=== PATIENT | male | born 2000 | race African-American/Black ===

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

== ENCOUNTER 2020-04-19 17:35 | Inpatient (IN) | payer OTHER ==
[2020-04-19 20:14] LABS: BASO % 0.2 % (0-2.0); EOS % 3.2 % (0-4.5); HEMATOCRIT 37.4 % (35.4-49); HEMOGLOBIN 12.5 GM/dL (11.7-16.9); MCH 31.7 pg (25.7-33.7); MCHC 33.4 g/dl (32.0-35.9); MEAN CELL VOLUME 94.7 fl (80-96); MONO % 9.4 % (3.8-10.2); NEUT % 72.2 % (42.8-82.8); PLATELET COUNT 372 K/MM3 (134-434); RBC 3.95 M/mm3 (4.00-5.60); RDW 13.1 % (11.9-15.9); WHITE BLOOD COUNT 10.8 K/mm3 (4.0-10.0)
[2020-04-19] MEDS ORDERED: SODIUM CHLORIDE 1,000 ML IV STA (20:22)
[2020-04-19 20:23] LABS: INR 1.21 (0.83-1.09); PROTHROMBIN TIME (PATIENT) 14.6 SEC (9.7-13.0)
[2020-04-19 20:26] LABS: ACTIVATED PTT 40.2 SECONDS (25.2-36.5)
[2020-04-19 20:34] LABS: POTASSIUM 3.8 mmol/L (3.5-5.1)
[2020-04-19 20:38] LABS: BLOOD UREA NITROGEN 6.1 mg/dL (7-18); CALCIUM 9.3 mg/dL (8.5-10.1)
[2020-04-19 20:39] LABS: ALBUMIN 3.6 g/dl (3.4-5.0)
[2020-04-19 20:42] LABS: BILIRUBIN,DIRECT 0.2 mg/dL (0.0-0.2); CREATININE 0.7 mg/dL (0.55-1.3)
[2020-04-19 20:43] LABS: BILIRUBIN,TOTAL 0.3 mg/dL (0.2-1); TOT PROT 8.2 g/dl (6.4-8.2)
[2020-04-19] MEDS ORDERED: DEXAMETHASONE SOD PHOSPHATE 4 MG/1 ML VIAL IVPUSH ONE (20:48)
[2020-04-19] MEDS ORDERED: ACETAMINOPHEN 1000 MG/100 ML VIAL (NON FORMULARY) IVPB ONE (20:59)
[2020-04-19] MEDS ORDERED: ACETAMINOPHEN INJECTION 100 ML IVPB ONE (21:03)
[2020-04-19] MEDS ORDERED: LACTATED RINGERS SOLUTION 1000 ML INFUS.BAG IV ONE (21:19)
[2020-04-19 21:22] LABS: N-TERMINAL BNP 68.9 pg/ml (5-125)
[2020-04-19] MEDS ORDERED: VANCOMYCIN 1,000 MG in DEXTROSE 5%-WATER - 250 ML IVPB ONE (22:11)
[2020-04-19] MEDS ORDERED: CEFEPIME HCL/D5W 1 GM/50 ML BAG IVPB ONE (22:11)
[2020-04-19] MEDS ORDERED: CEFEPIME 1 GM/100 ML BAG IVPB ONE (22:40)
[2020-04-20] MEDS ORDERED: ACETAMINOPHEN 1000 MG/100 ML VIAL (NON FORMULARY) IVPB PRN (00:17)
[2020-04-20] MEDS ORDERED: VANCOMYCIN 1 GRAM (PRE-DOCKED) 1,000 MG/250 ML BAG IVPB ONE (00:22)
[2020-04-20] MEDS ORDERED: ALBUTEROL SO4 0.083% IH SOL 2.5 MG/3 ML VIAL.NEB. NEB ONE ×3 (02:00→08:54)
[2020-04-20] MEDS: INSULIN SLIDING SCALE (NOVOLOG) 1 VIAL SQ SCH ×4 (06:28→21:25)
[2020-04-20] MEDS ORDERED: ALBUTEROL SO4 2.5/IPRATROPIUM 0.5 INH SOL 3 ML VIAL.NEB. NEB ONE (07:47)
[2020-04-20 07:58] LABS: PH,URINE 6.5 (5.0-8.0); URINE APPEARANCE CLEAR; URINE BILIRUBIN NEGATIVE (NEGATIVE); URINE COLOR YELLOW; URINE GLUCOSE (UA) NEGATIVE (NEGATIVE); URINE KETONE NEGATIVE (NEGATIVE); URINE LEUK ESTERASE NEGATIVE (NEGATIVE); URINE NITRITE NEGATIVE (NEGATIVE); URINE PROTEIN NEGATIVE (NEGATIVE)
[2020-04-20 08:35] LABS: POTASSIUM 3.9 mmol/L (3.5-5.1)
[2020-04-20 08:39] LABS: ALBUMIN 3.3 g/dl (3.4-5.0)
[2020-04-20 08:40] LABS: BLOOD UREA NITROGEN 5.5 mg/dL (7-18); CALCIUM 8.6 mg/dL (8.5-10.1)
[2020-04-20 08:43] LABS: CREATININE 0.7 mg/dL (0.55-1.3); PHOSPHOROUS 3.8 mg/dL (2.5-4.9)
[2020-04-20 08:44] LABS: BILIRUBIN,TOTAL 0.3 mg/dL (0.2-1); TOT PROT 7.3 g/dl (6.4-8.2)
[2020-04-20 09:15] LABS: BASO % 0.1 % (0-2.0); EOS % 4.5 % (0-4.5); HEMATOCRIT 37.5 % (35.4-49); HEMOGLOBIN 12.8 GM/dL (11.7-16.9); MCH 32.1 pg (25.7-33.7); MCHC 34.1 g/dl (32.0-35.9); MEAN CELL VOLUME 94.3 fl (80-96); MEAN PLT VOLUME 7.9 fl (7.5-11.1); MONO % 9.6 % (3.8-10.2); NEUT % 72.8 % (42.8-82.8); PLATELET COUNT 340 K/MM3 (134-434); RBC 3.98 M/mm3 (4.00-5.60); RDW 13.2 % (11.9-15.9); WHITE BLOOD COUNT 8.8 K/mm3 (4.0-10.0)
[2020-04-20] MEDS: QUEtiapine FUMARATE 300 MG TABLET PO SCH ×2 (10:00→21:25)
[2020-04-20] MEDS ORDERED: ENOXAPARIN NA (PORCINE) 40 MG/0.4 ML DISP.SYRIN SQ SCH ×2 (10:00)
[2020-04-20] MEDS ORDERED: ENOXAPARIN NA (PORCINE) 100 MG/1 ML DISP.SYRIN SQ ONE ×2 (10:00→21:13)
[2020-04-20] MEDS: HALOPERIDOL 5 MG TABLET PO SCH (10:00)
[2020-04-20] MEDS: POLYETHYLENE GLYCOL 3350 119 GM BTL PO SCH ×2 (10:00→21:25)
[2020-04-20] MEDS ORDERED: ENOXAPARIN NA (PORCINE) 40 MG/0.4 ML DISP.SYRIN SQ ONE (10:24)
[2020-04-20] MEDS: cloNIDine HCL 0.1 MG TABLET PO SCH ×2 (13:54→21:25)
[2020-04-20] MEDS ORDERED: cloNIDine HCL 0.1 MG TABLET ONE (21:12)
[2020-04-20] MEDS ORDERED: QUEtiapine FUMARATE 100 MG TABLET (FP) ONE (21:13)
[2020-04-20] MEDS: ENOXAPARIN NA (PORCINE) 100 MG/1 ML DISP.SYRIN SQ SCH (21:25)
[2020-04-21 05:12] VITALS: BMI 40.9
[2020-04-21] MEDS: cloNIDine HCL 0.1 MG TABLET PO SCH ×3 (06:12→22:28)
[2020-04-21] MEDS: INSULIN SLIDING SCALE (NOVOLOG) 1 VIAL SQ SCH ×3 (06:13→22:27)
[2020-04-21] MEDS ORDERED: QUEtiapine FUMARATE 100 MG TABLET (FP) ONE ×2 (09:00→20:22)
[2020-04-21] MEDS ORDERED: PNEUMOCOCCAL 23 VACCINE 0.5 ML VIAL IM ONE (09:30)
[2020-04-21] MEDS: HALOPERIDOL 5 MG TABLET PO SCH (09:36)
[2020-04-21] MEDS: QUEtiapine FUMARATE 300 MG TABLET PO SCH ×2 (09:36→22:29)
[2020-04-21] MEDS: ENOXAPARIN NA (PORCINE) 100 MG/1 ML DISP.SYRIN SQ SCH (09:37)
[2020-04-21] MEDS: METOPROLOL TARTRATE 25 MG TABLET (FP) PO SCH ×2 (09:41→22:29)
[2020-04-21] MEDS: POLYETHYLENE GLYCOL 3350 119 GM BTL PO SCH ×2 (09:41→22:29)
[2020-04-21] MEDS: ASPIRIN 81 MG CHEWABLE TABLETS PO SCH (09:41)
[2020-04-21 09:54] LABS: BASO % 0.2 % (0-2.0); EOS % 4.4 % (0-4.5); HEMATOCRIT 36.1 % (35.4-49); HEMOGLOBIN 12.3 GM/dL (11.7-16.9); LYMPH % 10.7 % (8-40); MCH 31.9 pg (25.7-33.7); MEAN CELL VOLUME 93.8 fl (80-96); MEAN PLT VOLUME 8.6 fl (7.5-11.1); MONO % 9.8 % (3.8-10.2); NEUT % 74.9 % (42.8-82.8); PLATELET COUNT 367 K/MM3 (134-434); RBC 3.85 M/mm3 (4.00-5.60); RDW 13.1 % (11.9-15.9); WHITE BLOOD COUNT 10.3 K/mm3 (4.0-10.0)
[2020-04-21] MEDS ORDERED: PNEUMOC 13-VAL CONJ-DIP CRM/PF 0.5 ML DISP.SYRIN IM ONE (10:00)
[2020-04-21 10:17] LABS: POTASSIUM 3.9 mmol/L (3.5-5.1)
[2020-04-21 10:20] LABS: ALBUMIN 3.2 g/dl (3.4-5.0); BLOOD UREA NITROGEN 4.6 mg/dL (7-18); MAGNESIUM 2.1 mg/dL (1.8-2.4)
[2020-04-21 10:23] LABS: CREATININE 0.8 mg/dL (0.55-1.3)
[2020-04-21 10:24] LABS: BILIRUBIN,TOTAL 0.7 mg/dL (0.2-1); TOT PROT 7.4 g/dl (6.4-8.2)
[2020-04-21] MEDS ORDERED: ALBUTEROL SO4 2.5/IPRATROPIUM 0.5 INH SOL 3 ML VIAL.NEB. NEB PRN (12:30)
[2020-04-21] MEDS ORDERED: DEXTROSE 5%-WATER - 50 ML IVPB ONE (14:31)
[2020-04-21] MEDS ORDERED: cefTRIAXone SODIUM 1 GM VIAL ONE (14:31)
[2020-04-21] MEDS: AZITHROMYCIN IVPB 500 MG/250 ML BAG IVPB SCH (15:14)
[2020-04-21] MEDS: CEFTRIAXONE 1 GM in DEXTROSE 5%-WATER - 50 ML IVPB SCH (15:15)
[2020-04-21] MEDS: cloZAPine 25 MG TABLET PO SCH ×2 (15:42→22:28)
[2020-04-21] MEDS ORDERED: ENOXAPARIN NA (PORCINE) 40 MG/0.4 ML DISP.SYRIN SQ SCH (16:00)
[2020-04-21] MEDS ORDERED: PT OWN MED DRAWER 7, Y5N ONE (20:22)
[2020-04-21] MEDS: DOCUSATE SODIUM 100 MG CAPSULE (FP) PO SCH (22:28)
[2020-04-22] MEDS: ENOXAPARIN NA (PORCINE) 40 MG/0.4 ML DISP.SYRIN SQ SCH ×2 (00:50→09:44)
[2020-04-22] MEDS: INSULIN SLIDING SCALE (NOVOLOG) 1 VIAL SQ SCH ×4 (06:08→22:44)
[2020-04-22] MEDS: cloNIDine HCL 0.1 MG TABLET PO SCH ×3 (06:14→22:43)
[2020-04-22 08:01] LABS: BASO % 0.2 % (0-2.0); EOS % 5.2 % (0-4.5); HEMATOCRIT 35.4 % (35.4-49); LYMPH % 10.8 % (8-40); MCH 31.8 pg (25.7-33.7); MCHC 33.8 g/dl (32.0-35.9); MEAN PLT VOLUME 8.4 fl (7.5-11.1); MONO % 10.7 % (3.8-10.2); NEUT % 73.1 % (42.8-82.8); PLATELET COUNT 379 K/MM3 (134-434); RBC 3.77 M/mm3 (4.00-5.60); WHITE BLOOD COUNT 10.8 K/mm3 (4.0-10.0)
[2020-04-22 09:23] LABS: ALBUMIN 3.2 g/dl (3.4-5.0); BLOOD UREA NITROGEN 6.8 mg/dL (7-18)
[2020-04-22 09:26] LABS: CREATININE 0.8 mg/dL (0.55-1.3)
[2020-04-22 09:27] LABS: BILIRUBIN,TOTAL 0.4 mg/dL (0.2-1); TOT PROT 7.3 g/dl (6.4-8.2)
[2020-04-22] MEDS ORDERED: QUEtiapine FUMARATE 100 MG TABLET (FP) ONE ×2 (09:35→22:35)
[2020-04-22] MEDS ORDERED: cefTRIAXone SODIUM 1 GM VIAL ONE (09:36)
[2020-04-22] MEDS ORDERED: PT OWN MED DRAWER 7, Y5N ONE ×2 (09:36→22:36)
[2020-04-22] MEDS ORDERED: DEXTROSE 5%-WATER - 50 ML IVPB ONE (09:37)
[2020-04-22] MEDS: cloZAPine 25 MG TABLET PO SCH ×2 (09:42→22:43)
[2020-04-22] MEDS: ASPIRIN 81 MG CHEWABLE TABLETS PO SCH (09:43)
[2020-04-22] MEDS: HALOPERIDOL 5 MG TABLET PO SCH (09:44)
[2020-04-22] MEDS: METOPROLOL TARTRATE 25 MG TABLET (FP) PO SCH ×2 (09:44→22:43)
[2020-04-22] MEDS: QUEtiapine FUMARATE 300 MG TABLET PO SCH ×2 (09:45→22:43)
[2020-04-22] MEDS: CEFTRIAXONE 1 GM in DEXTROSE 5%-WATER - 50 ML IVPB SCH (09:45)
[2020-04-22] MEDS: AZITHROMYCIN IVPB 500 MG/250 ML BAG IVPB SCH (09:47)
[2020-04-22] MEDS: POLYETHYLENE GLYCOL 3350 119 GM BTL PO SCH ×2 (09:50→22:44)
[2020-04-22] MEDS: ATORVASTATIN CA 10 MG TABLET (FP) PO SCH (22:43)
[2020-04-22] MEDS: DOCUSATE SODIUM 100 MG CAPSULE (FP) PO SCH (22:44)
[2020-04-23] MEDS: INSULIN SLIDING SCALE (NOVOLOG) 1 VIAL SQ SCH ×5 (06:22→21:20)
[2020-04-23] MEDS: cloNIDine HCL 0.1 MG TABLET PO SCH ×3 (06:22→21:05)
[2020-04-23 09:09] LABS: BASO % 0.2 % (0-2.0); EOS % 4.6 % (0-4.5); HEMATOCRIT 35.2 % (35.4-49); HEMOGLOBIN 11.9 GM/dL (11.7-16.9); LYMPH % 9.5 % (8-40); MCH 31.6 pg (25.7-33.7); MCHC 33.7 g/dl (32.0-35.9); MEAN CELL VOLUME 93.9 fl (80-96); MEAN PLT VOLUME 8.3 fl (7.5-11.1); NEUT % 76.7 % (42.8-82.8); PLATELET COUNT 409 K/MM3 (134-434); RBC 3.75 M/mm3 (4.00-5.60); RDW 13.2 % (11.9-15.9); WHITE BLOOD COUNT 11.4 K/mm3 (4.0-10.0)
[2020-04-23 09:31] LABS: POTASSIUM 4.3 mmol/L (3.5-5.1)
[2020-04-23 09:37] LABS: CALCIUM 9.1 mg/dL (8.5-10.1)
[2020-04-23 09:38] LABS: ALBUMIN 3.1 g/dl (3.4-5.0); BLOOD UREA NITROGEN 6.5 mg/dL (7-18)
[2020-04-23 09:39] LABS: CREATININE 0.8 mg/dL (0.55-1.3)
[2020-04-23 09:41] LABS: BILIRUBIN,TOTAL 0.3 mg/dL (0.2-1)
[2020-04-23 09:42] LABS: TOT PROT 7.4 g/dl (6.4-8.2)
[2020-04-23] MEDS ORDERED: cefTRIAXone SODIUM 1 GM VIAL ONE (09:47)
[2020-04-23] MEDS ORDERED: DEXTROSE 5%-WATER - 50 ML IVPB ONE (09:47)
[2020-04-23] MEDS ORDERED: PT OWN MED DRAWER 7, Y5N ONE ×2 (09:47→11:07)
[2020-04-23] MEDS: METOPROLOL TARTRATE 25 MG TABLET (FP) PO SCH ×2 (10:21→21:05)
[2020-04-23] MEDS: cloZAPine 25 MG TABLET PO SCH ×2 (10:21→21:06)
[2020-04-23] MEDS: HALOPERIDOL 5 MG TABLET PO SCH (10:21)
[2020-04-23] MEDS: ASPIRIN 81 MG CHEWABLE TABLETS PO SCH (10:22)
[2020-04-23] MEDS: CEFTRIAXONE 1 GM in DEXTROSE 5%-WATER - 50 ML IVPB SCH (10:22)
[2020-04-23] MEDS: ENOXAPARIN NA (PORCINE) 40 MG/0.4 ML DISP.SYRIN SQ SCH (10:23)
[2020-04-23] MEDS: POLYETHYLENE GLYCOL 3350 119 GM BTL PO SCH ×2 (10:23→21:06)
[2020-04-23] MEDS: QUEtiapine FUMARATE 300 MG TABLET PO SCH ×2 (10:24→21:05)
[2020-04-23] MEDS: AZITHROMYCIN IVPB 500 MG/250 ML BAG IVPB SCH (10:53)
[2020-04-23] MEDS: ATORVASTATIN CA 10 MG TABLET (FP) PO SCH (21:05)
[2020-04-23] MEDS: DOCUSATE SODIUM 100 MG CAPSULE (FP) PO SCH (21:06)
[2020-04-24] MEDS: INSULIN SLIDING SCALE (NOVOLOG) 1 VIAL SQ SCH ×2 (06:28→11:57)
[2020-04-24] MEDS: cloNIDine HCL 0.1 MG TABLET PO SCH ×3 (06:29→21:29)
[2020-04-24 07:52] LABS: BASO % 0.2 % (0-2.0); EOS % 5.4 % (0-4.5); HEMATOCRIT 35.6 % (35.4-49); HEMOGLOBIN 12.2 GM/dL (11.7-16.9); MCH 31.9 pg (25.7-33.7); MCHC 34.4 g/dl (32.0-35.9); MEAN CELL VOLUME 92.7 fl (80-96); NEUT % 76.4 % (42.8-82.8); PLATELET COUNT 440 K/MM3 (134-434); RBC 3.83 M/mm3 (4.00-5.60); RDW 13.2 % (11.9-15.9); WHITE BLOOD COUNT 12.7 K/mm3 (4.0-10.0)
[2020-04-24 07:58] LABS: POTASSIUM 4.3 mmol/L (3.5-5.1)
[2020-04-24 08:01] LABS: CALCIUM 8.8 mg/dL (8.5-10.1)
[2020-04-24 08:02] LABS: BLOOD UREA NITROGEN 6.6 mg/dL (7-18); MAGNESIUM 1.9 mg/dL (1.8-2.4)
[2020-04-24 08:04] LABS: CREATININE 0.8 mg/dL (0.55-1.3)
[2020-04-24 08:05] LABS: BILIRUBIN,TOTAL 0.2 mg/dL (0.2-1)
[2020-04-24 08:06] LABS: TOT PROT 7.3 g/dl (6.4-8.2)
[2020-04-24] MEDS: AZITHROMYCIN IVPB 500 MG/250 ML BAG IVPB SCH ×2 (09:27→10:02)
[2020-04-24] MEDS ORDERED: cefTRIAXone SODIUM 1 GM VIAL ONE (09:43)
[2020-04-24] MEDS ORDERED: DEXTROSE 5%-WATER - 50 ML IVPB ONE (09:43)
[2020-04-24] MEDS: ENOXAPARIN NA (PORCINE) 40 MG/0.4 ML DISP.SYRIN SQ SCH (10:01)
[2020-04-24] MEDS: cloZAPine 25 MG TABLET PO SCH ×2 (10:01→21:29)
[2020-04-24] MEDS: HALOPERIDOL 5 MG TABLET PO SCH (10:02)
[2020-04-24] MEDS: ASPIRIN 81 MG CHEWABLE TABLETS PO SCH (10:02)
[2020-04-24] MEDS: METOPROLOL TARTRATE 25 MG TABLET (FP) PO SCH ×2 (10:02→21:29)
[2020-04-24] MEDS: QUEtiapine FUMARATE 300 MG TABLET PO SCH ×2 (10:02→21:29)
[2020-04-24] MEDS: CEFTRIAXONE 1 GM in DEXTROSE 5%-WATER - 50 ML IVPB SCH (10:02)
[2020-04-24] MEDS: POLYETHYLENE GLYCOL 3350 119 GM BTL PO SCH ×2 (10:02→21:30)
[2020-04-24] MEDS ORDERED: AZITHROMYCIN 250 MG TABLET PO ONE (11:02)
[2020-04-24] MEDS: DOXYCYCLINE HYCLATE 100 MG CAPSULE PO SCH (17:38)
[2020-04-24] MEDS: metFORMIN HCL 500 MG TABLET (FP) PO SCH (17:38)
[2020-04-24] MEDS ORDERED: PT OWN MED DRAWER 7, Y5N ONE (21:22)
[2020-04-24] MEDS: ATORVASTATIN CA 10 MG TABLET (FP) PO SCH (21:29)
[2020-04-24] MEDS: DOCUSATE SODIUM 100 MG CAPSULE (FP) PO SCH (21:29)
[2020-04-24 22:27] LABS: HIV INTERPRETATION NEGATIVE (NEGATIVE)
[2020-04-25] MEDS: cloNIDine HCL 0.1 MG TABLET PO SCH (06:28)
[2020-04-25] MEDS: metFORMIN HCL 500 MG TABLET (FP) PO SCH (06:28)
[2020-04-25 07:10] LABS: BASO % 0.2 % (0-2.0); EOS % 6.1 % (0-4.5); HEMATOCRIT 35.2 % (35.4-49); HEMOGLOBIN 12.1 GM/dL (11.7-16.9); LYMPH % 9.5 % (8-40); MCH 32.1 pg (25.7-33.7); MCHC 34.4 g/dl (32.0-35.9); MEAN CELL VOLUME 93.1 fl (80-96); MEAN PLT VOLUME 7.8 fl (7.5-11.1); NEUT % 76.2 % (42.8-82.8); PLATELET COUNT 468 K/MM3 (134-434); RBC 3.78 M/mm3 (4.00-5.60); RDW 12.9 % (11.9-15.9); WHITE BLOOD COUNT 13.3 K/mm3 (4.0-10.0)
[2020-04-25] MEDS: CEFTRIAXONE 1 GM in DEXTROSE 5%-WATER - 50 ML IVPB SCH (07:59)
[2020-04-25] MEDS: QUEtiapine FUMARATE 300 MG TABLET PO SCH (10:12)
[2020-04-25] MEDS: ASPIRIN 81 MG CHEWABLE TABLETS PO SCH (10:12)
[2020-04-25] MEDS: METOPROLOL TARTRATE 25 MG TABLET (FP) PO SCH (10:12)
[2020-04-25] MEDS: ENOXAPARIN NA (PORCINE) 40 MG/0.4 ML DISP.SYRIN SQ SCH (10:12)
[2020-04-25] MEDS: DOXYCYCLINE HYCLATE 100 MG CAPSULE PO SCH (10:12)
[2020-04-25] MEDS: cloZAPine 25 MG TABLET PO SCH (10:13)
[2020-04-25] MEDS: HALOPERIDOL 5 MG TABLET PO SCH (10:13)
[2020-04-25] MEDS: POLYETHYLENE GLYCOL 3350 119 GM BTL PO SCH (10:14)
[2020-04-25 10:32] VITALS: BP 125/56; PULSE 100; TEMP 98.8
[2020-04-26 19:08] LABS: HEP B CORE AB, TOT Negative (Negative)
== END 2020-04-25 13:46 | disposition home or self-care (01) | DRG 139 ==
LOC: JER 17:35 → JERBED 20:49 → J4W 04-20 23:21 → J4S 04-22 23:53
PROVIDERS: ADMIT Hospitalist; ATTEND Nurse Practitioner Acute Care
DX: J18.9 Pneumonia, unspecified organism (principal); G31.84 Mild cognitive impairment of uncertain or unknown etiology; F90.9 Attention-deficit hyperactivity disorder, unspecified type; F39 Unspecified mood [affective] disorder; G47.33 Obstructive sleep apnea (adult) (pediatric); E11.9 Type 2 diabetes mellitus without complications; E66.01 Morbid (severe) obesity due to excess calories; Z68.41 Body mass index [BMI] 40.0-44.9, adult; J90 Pleural effusion, not elsewhere classified; I24.8 Other forms of acute ischemic heart disease; J34.89 Other specified disorders of nose and nasal sinuses; R09.02 Hypoxemia; R00.0 Tachycardia, unspecified; D72.829 Elevated white blood cell count, unspecified; R50.9 Fever, unspecified; R91.8 Other nonspecific abnormal finding of lung field; R77.8 Other specified abnormalities of plasma proteins; I26.99 Other pulmonary embolism without acute cor pulmonale; I10 Essential (primary) hypertension; Z86.16 Personal history of COVID-19
CPT/HCPCS: 36415; 71045-TC-FY; 71275-TC; 80053; 80061; 81003; 82248; 82550; 82728; 82962; 83036; 83605; 83615; 83721; 83735; 83880; 84100; 84436; 84443; 84484; 85025; 85379; 85610; 85730; 86140; 86704; 86706; 86707; 86708; 86709; 86769; 86803; 87040; 87086; 87340; 87389; 87804; 90732; 93005; 93010; 93306-TC; 93970-TC; 94640; 99285-25; C9803; G0009; J0131; J0735; U0003

== ENCOUNTER 2020-05-24 17:05 | Observation (INO) | payer OTHER ==
[2020-05-24 17:13] VITALS: BMI 39.9
[2020-05-24] MEDS: SODIUM CHLORIDE 3,266 ML IV ONE ×2 (18:22→23:34)
[2020-05-24] MEDS ORDERED: LACTATED RINGERS SOLUTION 1000 ML INFUS.BAG IV ONE (19:39)
[2020-05-24 19:55] LABS: MCHC 33.1 g/dl (32.0-35.9); RDW 13.8 % (11.9-15.9)
[2020-05-24] MEDS ORDERED: ACETAMINOPHEN 500 MG TABLET (FP) PO ONE (20:10)
[2020-05-24 20:12] LABS: BASO % 0.5 % (0-2.0); HEMATOCRIT 39.9 % (35.4-49); HEMOGLOBIN 13.2 GM/dL (11.7-16.9); LYMPH % 11.2 % (8-40); MCH 31.6 pg (25.7-33.7); MEAN CELL VOLUME 95.5 fl (80-96); MEAN PLT VOLUME 9.4 fl (7.5-11.1); MONO % 9.9 % (3.8-10.2); NEUT % 77.4 % (42.8-82.8); PLATELET COUNT 269 K/MM3 (134-434); RBC 4.18 M/mm3 (4.00-5.60); WHITE BLOOD COUNT 9.7 K/mm3 (4.0-10.0)
[2020-05-24] MEDS ORDERED: ACETAMINOPHEN 500 MG TABLET (FP) ONE (20:12)
[2020-05-24 20:40] LABS: ALBUMIN 3.8 g/dl (3.4-5.0); ALK PHOS 105 U/L (45-117); ANION GAP 11 MMOL/L (8-16); BILIRUBIN,TOTAL 0.3 mg/dL (0.2-1); BLOOD UREA NITROGEN 5.8 mg/dL (7-18); CALCIUM 9.3 mg/dL (8.5-10.1); CHLORIDE 102 mmol/L (98-107); CO2 20 mmol/L (21-32); CREATININE 0.9 mg/dL (0.55-1.3); GLUCOSE,RANDOM 154 mg/dL (74-106); SGOT/AST 67 U/L (15-37); SGPT/ALT 40 U/L (13-61); SODIUM 133 mmol/L (136-145); TOT PROT 8.4 g/dl (6.4-8.2)
[2020-05-24] MEDS ORDERED: AZTREONAM 2 GM/10 ML SYRINGE (RESTRICTED TO ID) IVPUSH ONE (21:02)
[2020-05-24] MEDS ORDERED: AZTREONAM 2 GM in DEXTROSE 5%-WATER 100 ML IVPB ONE (21:15)
[2020-05-24 21:22] LABS: PH,URINE 5.5 (5.0-8.0); URINE APPEARANCE CLEAR; URINE BILIRUBIN NEGATIVE (NEGATIVE); URINE COLOR YELLOW; URINE GLUCOSE (UA) NEGATIVE (NEGATIVE); URINE KETONE NEGATIVE (NEGATIVE); URINE LEUK ESTERASE NEGATIVE (NEGATIVE); URINE NITRITE NEGATIVE (NEGATIVE); URINE PROTEIN NEGATIVE (NEGATIVE); URINE UROBILINOGEN 0.2 mg/dL (0.2-1.0)
[2020-05-24 22:01] LABS: PLATELET ESTIMATE NORMAL
[2020-05-24] MEDS ORDERED: AZTREONAM 1 GM VIAL (RESTRICTED TO ID) ONE (22:18)
[2020-05-24] MEDS ORDERED: VANCOMYCIN 2,000 MG in DEXTROSE 5%-WATER - 250 ML IVPB ONE (23:00)
[2020-05-24] MEDS: VANCOMYCIN 2,000 MG in DEXTROSE 5%-WATER - 250 ML IVPB ONE ×2 (23:10→23:34)
[2020-05-25] MEDS ORDERED: ALBUTEROL SO4 2.5/IPRATROPIUM 0.5 INH SOL 3 ML VIAL.NEB. NEB PRN (05:16)
[2020-05-25] MEDS ORDERED: ACETAMINOPHEN 1000 MG/100 ML VIAL (NON FORMULARY) IVPB ONE (06:38)
[2020-05-25] MEDS ORDERED: ACETAMINOPHEN INJECTION 100 ML IVPB ONE (06:39)
[2020-05-25] MEDS: INSULIN SLIDING SCALE (NOVOLOG) 1 VIAL SQ SCH ×2 (07:20→11:14)
[2020-05-25] MEDS ORDERED: ENOXAPARIN NA (PORCINE) 40 MG/0.4 ML DISP.SYRIN SQ ONE (09:24)
[2020-05-25] MEDS ORDERED: methylPREDNISolone NA SUCC 40 MG/1 ML VIAL ONE (09:24)
[2020-05-25] MEDS ORDERED: PANTOPRAZOLE SODIUM 40 MG VIAL ONE (09:24)
[2020-05-25] MEDS ORDERED: PANTOPRAZOLE SODIUM 40 MG VIAL IVPUSH SCH (10:00)
[2020-05-25] MEDS ORDERED: ENOXAPARIN NA (PORCINE) 40 MG/0.4 ML DISP.SYRIN SQ SCH (10:00)
[2020-05-25] MEDS ORDERED: methylPREDNISolone NA SUCC 40 MG/1 ML VIAL IVPUSH SCH (10:00)
[2020-05-25] MEDS ORDERED: BUDESONIDE/FORMETEROL FUMARATE 80/4.5 mcg INHALER IH SCH (10:00)
[2020-05-25] MEDS ORDERED: METOPROLOL TARTRATE 25 MG TABLET (FP) PO SCH (10:30)
[2020-05-25] MEDS ORDERED: METOPROLOL TARTRATE 25 MG TABLET (FP) ONE (12:43)
[2020-05-25] MEDS ORDERED: QUEtiapine FUMARATE 300 MG TABLET PO SCH (14:00)
[2020-05-25 15:04] VITALS: BP 130/85; PULSE 108; TEMP 97.5
[2020-05-25] MEDS ORDERED: MONTELUKAST NA 10 MG TABLET PO SCH (22:00)
[2020-05-25] MEDS ORDERED: cloZAPine 100 MG TABLET PO SCH (22:00)
[2020-05-25] MEDS ORDERED: cloNIDine HCL 0.1 MG TABLET PO SCH (22:00)
[2020-05-25] MEDS ORDERED: ATORVASTATIN CA 10 MG TABLET (FP) PO SCH (22:00)
[2020-05-26] MEDS ORDERED: ASPIRIN 81 MG CHEWABLE TABLETS PO SCH (10:00)
== END 2020-05-25 15:30 ==
LOC: JER 17:05 → INTOOBSV 21:22 → JERBED 21:22
PROVIDERS: ADMIT Internal Medicine; ATTEND Student in an Organized Health Care Education/Training Program
PROC: 3E033NZ Introduction of Analgesics, Hypnotics, Sedatives into Peripheral Vein, Percutaneous Approach (ICD-10-PCS; principal; 2020-05-24)
PROC: 3E03329 Introduction of Other Anti-infective into Peripheral Vein, Percutaneous Approach (ICD-10-PCS; 2020-05-24)
PROC: 3E013VG Introduction of Insulin into Subcutaneous Tissue, Percutaneous Approach (ICD-10-PCS; 2020-05-24)
PROC: 3E0337Z Introduction of Electrolytic and Water Balance Substance into Peripheral Vein, Percutaneous Approach (ICD-10-PCS; 2020-05-24)
PROC: 3E033GC Introduction of Other Therapeutic Substance into Peripheral Vein, Percutaneous Approach (ICD-10-PCS; 2020-05-24)
DX: E87.2 Acidosis (principal); F90.9 Attention-deficit hyperactivity disorder, unspecified type; J18.9 Pneumonia, unspecified organism; F79 Unspecified intellectual disabilities; F70 Mild intellectual disabilities; E11.9 Type 2 diabetes mellitus without complications; R50.9 Fever, unspecified; E78.5 Hyperlipidemia, unspecified; Y95 Nosocomial condition; B34.9 Viral infection, unspecified; N62 Hypertrophy of breast; Z79.84 Long term (current) use of oral hypoglycemic drugs; E66.9 Obesity, unspecified; Z68.39 Body mass index [BMI] 39.0-39.9, adult; Z88.8 Allergy status to other drugs, medicaments and biological substances; Z88.0 Allergy status to penicillin
CPT/HCPCS: 36415; 71045-TC-FY; 80053; 81003; 82550; 82553; 82962; 83605; 84484; 85025; 87040; 87077; 87086; 87186; 87804; 93005; 93010; 96361; 96365; 96367; 96372; 96375; 99285-25; C9803; G0378; J0131; U0003

== ENCOUNTER 2020-07-04 15:40 | Inpatient (IN) | payer OTHER ==
[2020-07-04] MEDS ORDERED: LACTATED RINGERS SOLUTION 1000 ML INFUS.BAG IV ONE (16:17)
[2020-07-04 16:58] LABS: VENOUS BASE EXCESS 2.2 mmol/L (-2-2); VENOUS O2 SATURATION 59.6 % (70-80); VENOUS PCO2 56.1 mmHg (38-52); VENOUS PH 7.337 (7.310-7.410)
[2020-07-04 17:02] LABS: BASO % 0.7 % (0-2.0); EOS % 5.5 % (0-4.5); HEMOGLOBIN 13.2 GM/dL (11.7-16.9); LYMPH % 17.6 % (8-40); MCH 31.2 pg (25.7-33.7); MCHC 32.9 g/dl (32.0-35.9); MEAN CELL VOLUME 94.9 fl (80-96); MEAN PLT VOLUME 8.6 fl (7.5-11.1); MONO % 8.6 % (3.8-10.2); NEUT % 67.6 % (42.8-82.8); PLATELET COUNT 323 K/MM3 (134-434); RBC 4.22 M/mm3 (4.00-5.60); RDW 14.2 % (11.9-15.9); WHITE BLOOD COUNT 10.6 K/mm3 (4.0-10.0)
[2020-07-04 17:12] LABS: INR 0.96 (0.83-1.09); PROTHROMBIN TIME (PATIENT) 11.8 SEC (9.7-13.0)
[2020-07-04 17:22] LABS: CHLORIDE 104 mmol/L (98-107); SODIUM 138 mmol/L (136-145)
[2020-07-04 17:24] LABS: CALCIUM 9.5 mg/dL (8.5-10.1)
[2020-07-04 17:25] LABS: ALBUMIN 3.8 g/dl (3.4-5.0); ANION GAP 5 MMOL/L (8-16); BLOOD UREA NITROGEN 7.8 mg/dL (7-18); CO2 29 mmol/L (21-32); GLUCOSE,RANDOM 119 mg/dL (74-106)
[2020-07-04 17:27] LABS: BILIRUBIN,DIRECT 0.1 mg/dL (0.0-0.2)
[2020-07-04 17:28] LABS: CREATININE 0.7 mg/dL (0.55-1.3); SGOT/AST 32 U/L (15-37); SGPT/ALT 42 U/L (13-61)
[2020-07-04 17:29] LABS: BILIRUBIN,TOTAL 0.2 mg/dL (0.2-1); TOT PROT 8.1 g/dl (6.4-8.2)
[2020-07-04 17:30] LABS: ALK PHOS 105 U/L (45-117)
[2020-07-04 17:31] LABS: LDH 203 U/L (87-246)
[2020-07-04 17:32] LABS: PH,URINE 8.5 (5.0-8.0); URINE APPEARANCE CLEAR; URINE BILIRUBIN NEGATIVE (NEGATIVE); URINE COLOR YELLOW; URINE GLUCOSE (UA) NEGATIVE (NEGATIVE); URINE KETONE NEGATIVE (NEGATIVE); URINE LEUK ESTERASE NEGATIVE (NEGATIVE); URINE NITRITE NEGATIVE (NEGATIVE); URINE PROTEIN NEGATIVE (NEGATIVE); URINE UROBILINOGEN 0.2 mg/dL (0.2-1.0)
[2020-07-04 17:36] LABS: LACTIC ACID 2.2 mmol/L (0.4-2.0)
[2020-07-04] MEDS ORDERED: MIDAZOLAM HCL 2 MG/2 ML SINGLE DOSE VIAL IVPUSH ONE (17:55)
[2020-07-04] MEDS ORDERED: MIDAZOLAM HCL 2 MG/2 ML SINGLE DOSE VIAL ONE (18:28)
[2020-07-04] MEDS ORDERED: ALBUTEROL SO4 2.5/IPRATROPIUM 0.5 INH SOL 3 ML VIAL.NEB. NEB ONE ×4 (19:07→20:09)
[2020-07-04] MEDS ORDERED: guaiFENesin/D-METHORPHAN TAB.ER.12H PO ONE (19:15)
[2020-07-04] MEDS ORDERED: ALBUTEROL SO4 2.5/IPRATROPIUM 0.5 INH SOL 3 ML VIAL.NEB. NEB PRN (22:21)
[2020-07-05] MEDS: OSELTAMIVIR PHOSPHATE 75 MG CAPSULE PO SCH ×2 (03:49→11:35)
[2020-07-05 04:55] VITALS: BMI 41.8
[2020-07-05] MEDS: INSULIN SLIDING SCALE (NOVOLOG) 1 VIAL SQ SCH ×2 (06:42→12:31)
[2020-07-05] MEDS ORDERED: INSULIN SLIDING SCALE (NOVOLOG) 1 VIAL SQ SCH (07:00)
[2020-07-05] MEDS: QUEtiapine FUMARATE 300 MG TABLET PO SCH ×2 (07:13→18:01)
[2020-07-05 07:50] LABS: BASO % 0.2 % (0-2.0); EOS % 5.7 % (0-4.5); HEMATOCRIT 36.4 % (35.4-49); HEMOGLOBIN 12.3 GM/dL (11.7-16.9); LYMPH % 13.2 % (8-40); MCH 31.9 pg (25.7-33.7); MCHC 33.8 g/dl (32.0-35.9); MEAN CELL VOLUME 94.3 fl (80-96); MEAN PLT VOLUME 8.3 fl (7.5-11.1); MONO % 7.8 % (3.8-10.2); NEUT % 73.1 % (42.8-82.8); PLATELET COUNT 272 K/MM3 (134-434); RBC 3.86 M/mm3 (4.00-5.60); RDW 14.1 % (11.9-15.9); WHITE BLOOD COUNT 10.7 K/mm3 (4.0-10.0)
[2020-07-05 08:14] LABS: ALBUMIN 3.4 g/dl (3.4-5.0); BLOOD UREA NITROGEN 9.2 mg/dL (7-18); CALCIUM 9.1 mg/dL (8.5-10.1)
[2020-07-05 08:18] LABS: CREATININE 0.7 mg/dL (0.55-1.3); PHOSPHOROUS 4.1 mg/dL (2.5-4.9)
[2020-07-05 08:19] LABS: BILIRUBIN,TOTAL 0.3 mg/dL (0.2-1)
[2020-07-05 08:20] LABS: TOT PROT 7.1 g/dl (6.4-8.2)
[2020-07-05] MEDS ORDERED: ENOXAPARIN NA (PORCINE) 40 MG/0.4 ML DISP.SYRIN SQ SCH (10:00)
[2020-07-05] MEDS ORDERED: TOLNAFTATE 1% CREAM 15 GM TUBE TP SCH (10:00)
[2020-07-05] MEDS ORDERED: POLYETHYLENE GLYCOL 3350 119 GM BTL PO SCH (10:00)
[2020-07-05] MEDS ORDERED: HALOPERIDOL 5 MG TABLET PO SCH (10:00)
[2020-07-05] MEDS ORDERED: cloNIDine HCL 0.1 MG TABLET PO SCH (10:00)
[2020-07-05] MEDS ORDERED: guaiFENesin 600 MG TABLET.ER (FP) PO SCH (10:00)
[2020-07-05] MEDS ORDERED: DOCUSATE SODIUM 100 MG CAPSULE (FP) PO SCH (10:00)
[2020-07-05] MEDS ORDERED: PT OWN MED DRAWER 7, Y5N ONE (10:31)
[2020-07-05 11:48] LABS: LACTIC ACID 2.6 mmol/L (0.4-2.0)
[2020-07-05] MEDS ORDERED: SODIUM CHLORIDE 500 ML IV STA (12:11)
[2020-07-05 13:24] VITALS: BP 126/64; PULSE 113; TEMP 98.3
[2020-07-05] MEDS ORDERED: QUEtiapine FUMARATE 100 MG TABLET (FP) ONE (14:18)
== END 2020-07-05 18:46 | DRG 113 ==
LOC: JER 15:40 → JERBED 20:16 → J6S 07-05 02:22
PROVIDERS: ADMIT Internal Medicine; ATTEND Student in an Organized Health Care Education/Training Program
DX: J10.1 Influenza due to other identified influenza virus with other respiratory manifestations (principal); F90.9 Attention-deficit hyperactivity disorder, unspecified type; E11.9 Type 2 diabetes mellitus without complications; F39 Unspecified mood [affective] disorder; R62.50 Unspecified lack of expected normal physiological development in childhood; K59.09 Other constipation; R09.02 Hypoxemia; N62 Hypertrophy of breast; E87.2 Acidosis; B35.3 Tinea pedis; F06.30 Mood disorder due to known physiological condition, unspecified; Z68.41 Body mass index [BMI] 40.0-44.9, adult; F70 Mild intellectual disabilities; I10 Essential (primary) hypertension; Z88.0 Allergy status to penicillin
CPT/HCPCS: 36415; 71045-TC-FY; 71275-TC; 80053; 81003; 82248; 82550; 82728; 82803; 82962; 83036; 83605; 83615; 83735; 84100; 84484; 85025; 85610; 85730; 86140; 87040; 87086; 87804; 93005; 93010; 99285-25; C9803; J0735; Q9967; U0003; U0005

== ENCOUNTER 2020-08-12 04:01 | Inpatient (IN) | payer OTHER ==
[2020-08-12] MEDS ORDERED: HALOPERIDOL LACTATE 5 MG/ML IM ONE ×3 (04:24→06:45)
[2020-08-12] MEDS ORDERED: HALOPERIDOL LACTATE 5 MG/ML ONE ×3 (04:25→06:38)
[2020-08-12] MEDS ORDERED: ACETAMINOPHEN 1000 MG/100 ML VIAL (NON FORMULARY) IVPB ONE (05:00)
[2020-08-12 05:06] LABS: BASO % 0.3 % (0-2.0); EOS % 1.1 % (0-4.5); HEMATOCRIT 41.8 % (35.4-49); HEMOGLOBIN 13.5 GM/dL (11.7-16.9); LYMPH % 8.8 % (8-40); MCH 31.2 pg (25.7-33.7); MCHC 32.3 g/dl (32.0-35.9); MEAN CELL VOLUME 96.7 fl (80-96); MEAN PLT VOLUME 8.9 fl (7.5-11.1); MONO % 9.2 % (3.8-10.2); NEUT % 80.6 % (42.8-82.8); PLATELET COUNT 294 K/MM3 (134-434); RBC 4.32 M/mm3 (4.00-5.60); RDW 14.5 % (11.9-15.9); WHITE BLOOD COUNT 18.6 K/mm3 (4.0-10.0)
[2020-08-12] MEDS ORDERED: OXcarbazepine 150 MG TABLET (UD) PO ONE (05:07)
[2020-08-12 05:25] LABS: CHLORIDE 105 mmol/L (98-107); SODIUM 137 mmol/L (136-145)
[2020-08-12 05:28] LABS: ALBUMIN 4.1 g/dl (3.4-5.0); ANION GAP 9 MMOL/L (8-16); CALCIUM 9.2 mg/dL (8.5-10.1); CO2 24 mmol/L (21-32); GLUCOSE,RANDOM 112 mg/dL (74-106)
[2020-08-12 05:31] LABS: SGOT/AST 73 U/L (15-37); SGPT/ALT 38 U/L (13-61)
[2020-08-12 05:32] LABS: URINE APPEARANCE CLEAR; URINE BILIRUBIN NEGATIVE (NEGATIVE); URINE COLOR YELLOW; URINE GLUCOSE (UA) NEGATIVE (NEGATIVE); URINE KETONE NEGATIVE (NEGATIVE); URINE LEUK ESTERASE NEGATIVE (NEGATIVE); URINE NITRITE NEGATIVE (NEGATIVE); URINE PROTEIN NEGATIVE (NEGATIVE); URINE UROBILINOGEN 0.2 mg/dL (0.2-1.0)
[2020-08-12 05:33] LABS: BILIRUBIN,TOTAL 0.3 mg/dL (0.2-1); TOT PROT 8.3 g/dl (6.4-8.2)
[2020-08-12 05:34] LABS: ALK PHOS 101 U/L (45-117)
[2020-08-12] MEDS ORDERED: LORazepam 2 MG/ML SDV VIAL IM ONE ×2 (05:51→06:45)
[2020-08-12 05:52] LABS: PLATELET ESTIMATE NORMAL
[2020-08-12] MEDS ORDERED: LORazepam 2 MG/ML SDV VIAL ONE ×2 (05:52→06:38)
[2020-08-12] MEDS ORDERED: AZTREONAM 2 GM/10 ML SYRINGE (RESTRICTED TO ID) IVPUSH ONE (06:04)
[2020-08-12] MEDS ORDERED: VANCOMYCIN 1 GM in D5W (PRE-DOCKED) 1,000 MG/250 ML IVPB ONE (06:04)
[2020-08-12] MEDS ORDERED: ACETAMINOPHEN 325 MG SUPP.RECT ONE (06:32)
[2020-08-12] MEDS ORDERED: ACETAMINOPHEN 650 MG SUPP.RECT ONE (06:33)
[2020-08-12] MEDS ORDERED: AZTREONAM 2 GM in DEXTROSE 5%-WATER 100 ML IVPB ONE (06:45)
[2020-08-12] MEDS ORDERED: KETAMINE HCL 500 MG/10 ML VIAL IM ONE (07:21)
[2020-08-12] MEDS ORDERED: KETAMINE HCL 200 MG/20 ML VIAL ONE (07:24)
[2020-08-12] MEDS ORDERED: VANCOMYCIN 1 GRAM (PRE-DOCKED) 1,000 MG/250 ML BAG IVPB ONE (07:46)
[2020-08-12] MEDS: SODIUM CHLORIDE 0.9% 1000 ML INFUS.BAG IV SCH (08:00)
[2020-08-12] MEDS ORDERED: AZTREONAM 1 GM VIAL (RESTRICTED TO ID) ONE (08:43)
[2020-08-12] MEDS ORDERED: LACTATED RINGERS SOLUTION 1,000 ML IV SCH (12:00)
[2020-08-12] MEDS: METOPROLOL TARTRATE 25 MG TABLET (FP) PO SCH ×2 (12:30→21:44)
[2020-08-12] MEDS ORDERED: ACETAMINOPHEN 1000 MG/100 ML VIAL (NON FORMULARY) IVPB PRN (12:37)
[2020-08-12] MEDS ORDERED: BISACODYL 5 MG TABLET.DR (FP) PO PRN (12:56)
[2020-08-12] MEDS ORDERED: ALBUTEROL SO4 2.5/IPRATROPIUM 0.5 INH SOL 3 ML VIAL.NEB. NEB ONE ×2 (13:35→13:44)
[2020-08-12] MEDS ORDERED: METOPROLOL TARTRATE 25 MG TABLET (FP) ONE (13:36)
[2020-08-12] MEDS: ALBUTEROL SO4 HFA INHALER IH PRN ×2 (14:00→21:53)
[2020-08-12 14:48] VITALS: BMI 35.3
[2020-08-12] MEDS: QUEtiapine FUMARATE 300 MG TABLET PO SCH ×2 (15:04→21:44)
[2020-08-12] MEDS ORDERED: DEXTROSE 5%-WATER 100 ML IVPB ONE (17:16)
[2020-08-12] MEDS: ATORVASTATIN CA 10 MG TABLET (FP) PO SCH (21:44)
[2020-08-12] MEDS: cloNIDine HCL 0.1 MG TABLET PO SCH (21:44)
[2020-08-12] MEDS: CLOZAPINE PO SCH (21:45)
[2020-08-12] MEDS: POLYETHYLENE GLYCOL 3350 119 GM BTL PO SCH (21:45)
[2020-08-12] MEDS ORDERED: CLOZAPINE 100 MG PO SCH ×2 (22:00)
[2020-08-12] MEDS: CEFTRIAXONE 2 GM in DEXTROSE 5%-WATER 2 GM/100 ML BAG IVPB SCH (23:04)
[2020-08-13] MEDS ORDERED: PT OWN MED DRAWER 7, Y5N ONE ×3 (05:28→23:28)
[2020-08-13] MEDS: SODIUM CHLORIDE 0.9% 1000 ML INFUS.BAG IV SCH (05:32)
[2020-08-13] MEDS: QUEtiapine FUMARATE 300 MG TABLET PO SCH ×2 (10:50→14:29)
[2020-08-13] MEDS ORDERED: DEXTROSE 5%-WATER 100 ML IVPB ONE (10:55)
[2020-08-13] MEDS: ENOXAPARIN NA (PORCINE) 40 MG/0.4 ML DISP.SYRIN SQ SCH (10:56)
[2020-08-13] MEDS: CEFTRIAXONE 2 GM in DEXTROSE 5%-WATER 2 GM/100 ML BAG IVPB SCH (10:56)
[2020-08-13] MEDS ORDERED: INSULIN SLIDING SCALE (NOVOLOG) 1 VIAL SQ SCH (11:00)
[2020-08-13 12:18] LABS: CALCIUM 9.4 mg/dL (8.5-10.1); MAGNESIUM 2.3 mg/dL (1.8-2.4)
[2020-08-13 12:20] LABS: CREATININE 0.8 mg/dL (0.55-1.3)
[2020-08-13] MEDS: LORATADINE 10 MG TABLET PO SCH (14:18)
[2020-08-13] MEDS: ASPIRIN 81 MG CHEWABLE TABLETS PO SCH (14:18)
[2020-08-13] MEDS: METOPROLOL TARTRATE 25 MG TABLET (FP) PO SCH (14:18)
[2020-08-13] MEDS: HALOPERIDOL 5 MG TABLET PO SCH (14:19)
[2020-08-13] MEDS: BUDESONIDE/FORMETEROL FUMARATE 80/4.5 mcg INHALER IH SCH (14:19)
[2020-08-13] MEDS: FLUTICASONE PROP 0.05% 16 GM NASAL SPRAY NS SCH (14:19)
[2020-08-13] MEDS: cloNIDine HCL 0.1 MG TABLET PO SCH ×2 (14:19→14:31)
[2020-08-13] MEDS: POLYETHYLENE GLYCOL 3350 119 GM BTL PO SCH (14:19)
[2020-08-13] MEDS: CLOZAPINE PO SCH ×2 (14:20→14:31)
[2020-08-13] MEDS: INSULIN SLIDING SCALE (NOVOLOG) 1 VIAL SQ SCH ×2 (17:28→23:21)
[2020-08-13] MEDS: LOTEPREDNOL ETABONATE 5 GM OU SCH ×2 (18:47→18:48)
[2020-08-14] MEDS: QUEtiapine FUMARATE 300 MG TABLET PO SCH ×4 (01:07→21:35)
[2020-08-14] MEDS: METOPROLOL TARTRATE 25 MG TABLET (FP) PO SCH ×3 (01:07→21:35)
[2020-08-14] MEDS: cloNIDine HCL 0.1 MG TABLET PO SCH ×3 (01:07→21:35)
[2020-08-14] MEDS: ATORVASTATIN CA 10 MG TABLET (FP) PO SCH ×2 (01:07→21:34)
[2020-08-14] MEDS: POLYETHYLENE GLYCOL 3350 119 GM BTL PO SCH ×3 (01:08→21:45)
[2020-08-14] MEDS: FLUTICASONE PROP 0.05% 16 GM NASAL SPRAY NS SCH ×3 (01:08→21:37)
[2020-08-14] MEDS: CLOZAPINE PO SCH ×3 (01:08→21:37)
[2020-08-14] MEDS: INSULIN SLIDING SCALE (NOVOLOG) 1 VIAL SQ SCH ×4 (06:42→21:43)
[2020-08-14] MEDS ORDERED: DEXTROSE 5%-WATER 100 ML IVPB ONE (09:03)
[2020-08-14] MEDS ORDERED: PT OWN MED DRAWER 7, Y5N ONE ×2 (09:03→21:34)
[2020-08-14] MEDS: ASPIRIN 81 MG CHEWABLE TABLETS PO SCH (09:05)
[2020-08-14] MEDS: LORATADINE 10 MG TABLET PO SCH (09:05)
[2020-08-14] MEDS: HALOPERIDOL 5 MG TABLET PO SCH (09:05)
[2020-08-14] MEDS: BUDESONIDE/FORMETEROL FUMARATE 80/4.5 mcg INHALER IH SCH (09:07)
[2020-08-14] MEDS: CEFTRIAXONE 2 GM in DEXTROSE 5%-WATER 2 GM/100 ML BAG IVPB SCH (09:07)
[2020-08-14] MEDS: ENOXAPARIN NA (PORCINE) 40 MG/0.4 ML DISP.SYRIN SQ SCH (09:07)
[2020-08-14 09:49] LABS: BASO % 0.4 % (0-2.0); EOS % 4.1 % (0-4.5); HEMATOCRIT 37.4 % (35.4-49); HEMOGLOBIN 12.7 GM/dL (11.7-16.9); LYMPH % 16.8 % (8-40); MCH 32.1 pg (25.7-33.7); MCHC 34.1 g/dl (32.0-35.9); MEAN CELL VOLUME 94.1 fl (80-96); MEAN PLT VOLUME 8.3 fl (7.5-11.1); MONO % 11.7 % (3.8-10.2); PLATELET COUNT 302 K/MM3 (134-434); RBC 3.97 M/mm3 (4.00-5.60); RDW 14.1 % (11.9-15.9); WHITE BLOOD COUNT 8.1 K/mm3 (4.0-10.0)
[2020-08-14 10:02] LABS: ALBUMIN 3.7 g/dl (3.4-5.0); BLOOD UREA NITROGEN 7.8 mg/dL (7-18); CALCIUM 9.9 mg/dL (8.5-10.1)
[2020-08-14 10:03] LABS: MAGNESIUM 2.1 mg/dL (1.8-2.4)
[2020-08-14 10:05] LABS: CREATININE 0.8 mg/dL (0.55-1.3)
[2020-08-14 10:08] LABS: BILIRUBIN,TOTAL 0.3 mg/dL (0.2-1); TOT PROT 7.7 g/dl (6.4-8.2)
[2020-08-14] MEDS ORDERED: HALOPERIDOL LACTATE 5 MG/ML IM PRN (18:34)
[2020-08-15] MEDS: INSULIN SLIDING SCALE (NOVOLOG) 1 VIAL SQ SCH ×3 (06:14→16:07)
[2020-08-15] MEDS: QUEtiapine FUMARATE 300 MG TABLET PO SCH ×2 (07:59→13:52)
[2020-08-15 08:13] LABS: BASO % 0.4 % (0-2.0); EOS % 3.9 % (0-4.5); HEMATOCRIT 38.6 % (35.4-49); HEMOGLOBIN 13.2 GM/dL (11.7-16.9); LYMPH % 14.2 % (8-40); MCHC 34.1 g/dl (32.0-35.9); MEAN CELL VOLUME 93.8 fl (80-96); MEAN PLT VOLUME 8.2 fl (7.5-11.1); MONO % 9.5 % (3.8-10.2); PLATELET COUNT 324 K/MM3 (134-434); RBC 4.11 M/mm3 (4.00-5.60); RDW 14.1 % (11.9-15.9)
[2020-08-15 08:42] LABS: ALBUMIN 3.7 g/dl (3.4-5.0); BLOOD UREA NITROGEN 8.9 mg/dL (7-18); CALCIUM 9.9 mg/dL (8.5-10.1); MAGNESIUM 2.1 mg/dL (1.8-2.4)
[2020-08-15 08:46] LABS: CREATININE 0.8 mg/dL (0.55-1.3)
[2020-08-15 08:48] LABS: BILIRUBIN,TOTAL 0.5 mg/dL (0.2-1); TOT PROT 7.9 g/dl (6.4-8.2)
[2020-08-15] MEDS ORDERED: PT OWN MED DRAWER 7, Y5N ONE ×2 (10:21→10:37)
[2020-08-15] MEDS ORDERED: DEXTROSE 5%-WATER 100 ML IVPB ONE (10:22)
[2020-08-15] MEDS: HALOPERIDOL 5 MG TABLET PO SCH (10:28)
[2020-08-15] MEDS: METOPROLOL TARTRATE 25 MG TABLET (FP) PO SCH (10:28)
[2020-08-15] MEDS: cloNIDine HCL 0.1 MG TABLET PO SCH (10:28)
[2020-08-15] MEDS: ENOXAPARIN NA (PORCINE) 40 MG/0.4 ML DISP.SYRIN SQ SCH ×2 (10:28→13:55)
[2020-08-15] MEDS: LORATADINE 10 MG TABLET PO SCH (10:28)
[2020-08-15] MEDS: FLUTICASONE PROP 0.05% 16 GM NASAL SPRAY NS SCH (10:28)
[2020-08-15] MEDS: POLYETHYLENE GLYCOL 3350 119 GM BTL PO SCH (10:29)
[2020-08-15] MEDS: CEFTRIAXONE 2 GM in DEXTROSE 5%-WATER 2 GM/100 ML BAG IVPB SCH (10:29)
[2020-08-15] MEDS: CLOZAPINE PO SCH (10:29)
[2020-08-15] MEDS: ASPIRIN 81 MG CHEWABLE TABLETS PO SCH (10:29)
[2020-08-15] MEDS: BUDESONIDE/FORMETEROL FUMARATE 80/4.5 mcg INHALER IH SCH (10:30)
[2020-08-15 15:56] VITALS: BP 150/77; PULSE 113; TEMP 97.3
[2020-08-15] MEDS ORDERED: CEFUROXIME AXETIL 500 MG TABLET PO SCH (22:00)
[2020-08-15] MEDS ORDERED: OXcarbazepine 150 MG TABLET (UD) PO SCH (22:00)
[2020-08-22] MEDS ORDERED: OXcarbazepine 300 MG/5 ML 250 ML BULK BOTTLE PO SCH (22:00)
[2020-08-22] MEDS ORDERED: OXcarbazepine 300 MG TABLET (UD) PO SCH (22:00)
== END 2020-08-15 16:34 | disposition home or self-care (01) | DRG 137 ==
LOC: JER 04:01 → JERBED 09:10 → J5S 14:25
PROVIDERS: ADMIT Student in an Organized Health Care Education/Training Program; ATTEND Nurse Practitioner Acute Care
DX: J69.0 Pneumonitis due to inhalation of food and vomit (principal); F39 Unspecified mood [affective] disorder; E11.9 Type 2 diabetes mellitus without complications; R56.9 Unspecified convulsions; F79 Unspecified intellectual disabilities; I10 Essential (primary) hypertension; Z20.822 Contact with and (suspected) exposure to COVID-19; F81.9 Developmental disorder of scholastic skills, unspecified; E66.9 Obesity, unspecified; Z68.35 Body mass index [BMI] 35.0-35.9, adult
CPT/HCPCS: 36415; 71045-TC-FY; 80048; 80053; 81003; 82962; 83605; 83735; 84100; 84484; 85025; 87040; 87086; 93005; 93010; 99285-25; C9803; J0131; J0735; U0003; U0005

== ENCOUNTER 2020-08-20 00:34 | Emergency (ER) | payer OTHER ==
[2020-08-20 01:01] VITALS: BMI 38.3
[2020-08-20] MEDS ORDERED: DEXAMETHASONE SOD PHOSPHATE 10 MG/1 ML VIAL IM ONE (01:01)
[2020-08-20] MEDS ORDERED: ALBUTEROL SO4 2.5/IPRATROPIUM 0.5 INH SOL 3 ML VIAL.NEB. NEB ONE ×2 (01:11→01:30)
[2020-08-20] MEDS: ALBUTEROL SO4 2.5/IPRATROPIUM 0.5 INH SOL 3 ML VIAL.NEB. NEB SCH ×3 (01:17→01:48)
[2020-08-20] MEDS ORDERED: DEXAMETHASONE SOD PHOSPHATE 10 MG/1 ML VIAL ONE (01:42)
[2020-08-20 03:10] LABS: BASO % 0.5 % (0-2.0); EOS % 5.3 % (0-4.5); HEMATOCRIT 35.4 % (35.4-49); HEMOGLOBIN 11.9 GM/dL (11.7-16.9); LYMPH % 17.8 % (8-40); MCH 31.4 pg (25.7-33.7); MCHC 33.6 g/dl (32.0-35.9); MEAN CELL VOLUME 93.3 fl (80-96); MEAN PLT VOLUME 7.9 fl (7.5-11.1); MONO % 7.5 % (3.8-10.2); NEUT % 68.9 % (42.8-82.8); PLATELET COUNT 317 K/MM3 (134-434); RBC 3.79 M/mm3 (4.00-5.60); RDW 13.9 % (11.9-15.9); WHITE BLOOD COUNT 11.6 K/mm3 (4.0-10.0)
[2020-08-20 03:30] LABS: ALBUMIN 3.8 g/dl (3.4-5.0); BLOOD UREA NITROGEN 9.4 mg/dL (7-18); CALCIUM 9.3 mg/dL (8.5-10.1)
[2020-08-20 03:34] LABS: CREATININE 0.7 mg/dL (0.55-1.3)
[2020-08-20 03:35] LABS: BILIRUBIN,TOTAL 0.2 mg/dL (0.2-1); TOT PROT 7.6 g/dl (6.4-8.2)
[2020-08-20] MEDS ORDERED: POLYETHYLENE GLYCOL 3350 119 GM BTL PO ONE (05:49)
[2020-08-20 07:30] VITALS: BP 127/65; PULSE 100; TEMP 98.2
== END 2020-08-20 08:50 | disposition home or self-care (01) ==
LOC: JER 00:34
PROC: 3E0F7GC Introduction of Other Therapeutic Substance into Respiratory Tract, Via Natural or Artificial Opening (ICD-10-PCS; principal; 2020-08-20)
PROC: 3E023GC Introduction of Other Therapeutic Substance into Muscle, Percutaneous Approach (ICD-10-PCS; 2020-08-20)
DX: J90 Pleural effusion, not elsewhere classified (principal)
CPT/HCPCS: 36415; 71045-TC-FY; 74177-TC; 80053; 85025; 93005; 93010; 99285-25; J1100

== ENCOUNTER 2021-05-30 14:03 | Emergency (ER) | payer OTHER ==
[2021-05-30 14:24] VITALS: BP 150/83; PULSE 112; TEMP 97.9; BMI 38.2
[2021-05-31 12:08] LABS: SARS-CoV-2 NAA Not Detected (Not Detected)
== END 2021-05-30 18:34 | disposition home or self-care (01) ==
LOC: FER 14:03
DX: R09.89 Other specified symptoms and signs involving the circulatory and respiratory systems (principal)
CPT/HCPCS: 36415; 71045-TC-FY; 93005; 99285-25; C9803-CS; U0003; U0005

== ENCOUNTER 2021-06-21 13:31 | Emergency (ER) | payer OTHER ==
[2021-06-21 13:44] VITALS: BP 139/71; TEMP 97.9; BMI 40.8
[2021-06-21 13:59] VITALS: PULSE 103
== END 2021-06-21 14:11 | disposition home or self-care (01) ==
LOC: FER 13:31
DX: S00.412A Abrasion of left ear, initial encounter (principal); Y99.8 Other external cause status
CPT/HCPCS: 99282-25

== ENCOUNTER 2021-06-25 16:47 | Emergency (ER) | payer OTHER ==
[2021-06-25 17:19] VITALS: BP 145/89; PULSE 115; TEMP 97.8; BMI 39.0
== END 2021-06-25 18:50 | disposition short-term general hospital (02) ==
LOC: JER 16:47
DX: R06.89 Other abnormalities of breathing (principal)
CPT/HCPCS: 71045-TC-FY; 71046-TC-FY; 87804; 99284-25; C9803-CS; U0003; U0005